=== PATIENT | male | born 1965 | race African-American/Black ===

== ENCOUNTER 2021-03-21 11:51 | Emergency (ER) | payer OTHER ==
[~2021-03-21] VITALS: Ht 188 cm; Wt 112.0 kg
[2021-03-21 11:53] VITALS: BP 175/112
== END 2021-03-21 19:40 | disposition left against medical advice (07) ==
LOC: ER 11:51
DX: R07.89 Other chest pain (principal)
CPT/HCPCS: 93005

== ENCOUNTER 2022-08-13 13:10 | Emergency (ER) | payer MEDICAID, OTHER ==
[~2022-08-13] VITALS: Ht 188 cm; Wt 98.0 kg
[2022-08-13 14:29] LABS: HEMATOCRIT. 26.6 % (42.0-52.0); HEMOGLOBIN. 8.9 g/dL (14.0-18.0); MEAN CORPUSCULAR HEMOGLOBIN 28.2 pg (28.0-32.0); MEAN CORPUSCULAR VOLUME 84.4 fL (80.0-94.0); MEAN PLATELET VOLUME 8.5 fl (7.4-10.4); PLATELET 241 x1000/uL (130-400); RED BLOOD CELL COUNT 3.15 mill/uL (4.7-6.1); RED CELL DISTRIBUTION WIDTH 15.4 % (11.6-14.6)
[2022-08-13 14:45] LABS: PARTIAL THROMBOPLASTIN TIME < 21.0 sec (23.4-31.0); PROTHROMBIN TIME 10.9 sec (9.6-11.0)
[2022-08-13 14:48] LABS: CHLORIDE 103 mEq/L (98-107)
[2022-08-13 15:31] LABS: PLATELET ESTIMATE NORMAL
[2022-08-13 17:08] LABS: CLARITY URINE CLOUDY (CLEAR); COLOR URINE DARK YELLOW (YELLOW); KETONES URINE TRACE (NEGATIVE); LEUKOCYTE ESTERASE URINE TRACE (NEGATIVE); NITRITE URINE NEGATIVE (NEGATIVE); OCCULT BLOOD URINE NEGATIVE (NEGATIVE); PROTEIN URINE 2+ (NEGATIVE); SPECIFIC GRAVITY URINE 1.024 (1.005-1.030)
[2022-08-13 21:00] VITALS: BP 120/76
== END 2022-08-13 21:03 | disposition home or self-care (01) ==
LOC: ER 13:10
DX: R53.1 Weakness (principal); I10 Essential (primary) hypertension; Z98.890 Other specified postprocedural states
CPT/HCPCS: 36415; 71045; 80053; 81003; 83880; 84484; 85025; 93005; 99285